=== PATIENT | female | born 1980 | race Two or more races ===

== ENCOUNTER 2018-04-02 10:01 | Outpatient (CLI) | payer OTHER ==
[~2018-04-02 10:01] MED LIST: IBUPROFEN800 MG PO; SEPTRA DS TABLE1 TAB PO
== END 2018-04-02 10:44 | disposition home or self-care (01) ==
LOC: NST 10:01
DX: Z34.83 Encounter for supervision of other normal pregnancy, third trimester (principal)

== ENCOUNTER 2018-05-14 10:45 | Inpatient (IN) | payer OTHER ==
[~2018-05-14] VITALS: Ht 162.6 cm; Wt 107.5 kg
[2018-05-22] MEDS ORDERED: PRENATAL FORMU1 EAC1 PO (08:31)
[2018-05-22] MEDS ORDERED: METFORMIN HCL750 MG PO (08:31)
[2018-05-22] MEDS ORDERED: IRON325 MG PO (08:32)
== END 2018-05-24 10:55 | disposition home or self-care (01) | DRG 775 ==
LOC: OB/GYN 05-22 07:01 → LDR 05-22 07:01 → OB/GYN 05-22 20:06 → LDR 06-09 10:45
PROC: 0KQM0ZZ Repair Perineum Muscle, Open Approach (ICD-10-PCS; principal; 2018-05-22)
PROC: 10E0XZZ Delivery of Products of Conception, External Approach (ICD-10-PCS; 2018-05-22)
PROC: 4A1HXCZ Monitoring of Products of Conception, Cardiac Rate, External Approach (ICD-10-PCS; 2018-05-22)
PROC: 4A033R1 Measurement of Arterial Saturation, Peripheral, Percutaneous Approach (ICD-10-PCS; 2018-05-22)
DX: O70.1 Second degree perineal laceration during delivery (principal); Z37.0 Single live birth; Z3A.37 37 weeks gestation of pregnancy

== ENCOUNTER 2018-05-21 09:30 | Outpatient (CLI) | payer OTHER ==
[2018-05-22] MEDS ORDERED: METFORMIN HCL750 MG PO (08:31)
[2018-05-22] MEDS ORDERED: PRENATAL FORMU1 EAC1 PO (08:31)
[2018-05-22] MEDS ORDERED: IRON325 MG PO (08:32)
== END 2018-05-21 10:40 | disposition home or self-care (01) ==
LOC: NST 09:30
DX: Z34.83 Encounter for supervision of other normal pregnancy, third trimester (principal)

== ENCOUNTER 2018-07-20 13:09 | Emergency (ER) | payer OTHER ==
[~2018-07-20] VITALS: Ht 162.6 cm; Wt 96.6 kg
[~2018-07-20 13:09] MED LIST changes: +IRON325 MG PO; +METFORMIN HCL750 MG PO; +PRENATAL FORMU1 EAC1 PO
== END 2018-07-20 17:53 | disposition home or self-care (01) ==
LOC: ER 13:09
DX: H10.89 Other conjunctivitis (principal)

== ENCOUNTER → 2024-08-07 07:21 | Outpatient (CLI) | payer OTHER ==
[2024-08-07 08:04] LABS: HEMATOCRIT 32.9 % (36.0-45.00); HEMOGLOBIN 10.5 g/dL (12.0-15.00); MEAN CELL VOLUME 77.4 fL (80.00-100.00); MEAN CORPUSCULAR HEMOGLOBIN 24.7 pg (27.00-32.0); MEAN CORPUSCULAR HGB CONC 31.9 g/dl (32.0-36.0); PLATELET COUNT 330 K/uL (150-450); RED BLOOD COUNT 4.25 M/uL (4.00-6.00)
[2024-08-07 08:08] LABS: RED CELL DISTRIBUTION WIDTH 24.5 % (11.5-14.5)
[2024-08-07 08:49] LABS: INR 0.99; PARTIAL THROMBOPLASTIN TIME 25.4 SECONDS (22.0-34.0); PROTHROMBIN TIME 10.8 SECONDS (9.0-11.5)
[2024-08-07 08:56] LABS: ALBUMIN 3.7 gm/dL (3.4-5.0); BILIRUBIN TOTAL 0.32 mg/dL (0.3-1.2); CALCIUM 9.2 mg/dL (8.5-10.1); CREATININE SERUM 0.62 mg/dL (0.55-1.02); GFR 105.56; GLOBULINA 3.7 G/DL (2.4-3.5); POTASSIUM 4.58 mEq/L (3.5-5.1); TOTAL PROTEIN 7.4 gm/dL (6.4-8.2)
== END | disposition home or self-care (01) ==
LOC: LAB 07:21
PROVIDERS: ATTEND Obstetrics & Gynecology
DX: N91.1 Secondary amenorrhea (principal); R07.9 Chest pain, unspecified

== ENCOUNTER 2024-08-07 07:45 | Outpatient (CLI) | payer OTHER | END 2024-08-07 07:57 | disposition home or self-care (01) | LOC: RAD 07:45 | PROVIDERS: ATTEND Obstetrics & Gynecology | DX: R05.9 Cough, unspecified (principal) ==

== ENCOUNTER 2024-09-09 10:00 | Inpatient (IN) | payer OTHER ==
[~2024-09-09] VITALS: Ht 121.9 cm; Wt 99.8 kg
[2024-09-09 11:18] VITALS: BP 145/80
[2024-09-09] MEDS ORDERED: IRON236 MG (11:21)
[2024-09-24 09:38] LABS: RH POSITIVE
[2024-09-24] MEDS ORDERED: CEFAZOLIN SODIUM 1,000 MG VIAL ONE (13:12)
[2024-09-24] MEDS ORDERED: POVIDONE-IODINE 118 ML BOTT TOP ONE (13:12)
[2024-09-24 13:54] LABS: HEMATOCRIT 36.2 % (36.0-45.00); HEMOGLOBIN 11.6 g/dL (12.0-15.00); MEAN CELL VOLUME 83.4 fL (80.00-100.00); MEAN CORPUSCULAR HEMOGLOBIN 26.8 pg (27.00-32.0); MEAN CORPUSCULAR HGB CONC 32.1 g/dl (32.0-36.0); PLATELET COUNT 232 K/uL (150-450); RED BLOOD COUNT 4.33 M/uL (4.00-6.00)
[2024-09-24 14:01] LABS: INR 1.02; PROTHROMBIN TIME 11.1 SECONDS (9.0-11.5)
[2024-09-24 14:07] LABS: RED CELL DISTRIBUTION WIDTH 17.4 % (11.5-14.5)
[2024-09-24 14:41] LABS: ALBUMIN 3.7 gm/dL (3.4-5.0); BILIRUBIN TOTAL 0.5 mg/dL (0.3-1.2); CALCIUM 8.9 mg/dL (8.5-10.1); CREATININE SERUM 0.52 mg/dL (0.55-1.02); GFR 128.7; GLOBULINA 3.6 G/DL (2.4-3.5); POTASSIUM 4.18 mEq/L (3.5-5.1); TOTAL PROTEIN 7.3 gm/dL (6.4-8.2)
[2024-09-24] MEDS ORDERED: MORPHINE SULFATE 4 MG/ML CARTRIDGE IV PRN (17:15)
[2024-09-24] MEDS ORDERED: RINGERS SOLUTION,LACTATED 1,000 ML IV SCH (17:15)
[2024-09-24] MEDS ORDERED: ONDANSETRON HCL 2 MG/ML VIAL IV ONE (17:15)
[2024-09-24] MEDS ORDERED: MORPHINE SULFATE 4 MG/ML VIAL IV ONE ×2 (18:50→19:50)
[2024-09-24] MEDS ORDERED: ONDANSETRON HCL 2 MG/ML VIAL ONE (18:54)
[2024-09-24 21:01] VITALS: BP 145/80
[2024-09-25] VITALS: BP 138/78
[2024-09-25 08:19] VITALS: BP 138/82
[2024-09-25] MEDS ORDERED: IBUprofen 400 MG TABLET PO SCH (09:00)
[2024-09-25 10:43] LABS: HEMOGLOBIN 11.4 g/dL (12.0-15.00); MEAN CELL VOLUME 82.6 fL (80.00-100.00); MEAN CORPUSCULAR HEMOGLOBIN 26.9 pg (27.00-32.0); MEAN CORPUSCULAR HGB CONC 32.6 g/dl (32.0-36.0); PLATELET COUNT 238 K/uL (150-450); RED BLOOD COUNT 4.23 M/uL (4.00-6.00); RED CELL DISTRIBUTION WIDTH 16.7 % (11.5-14.5)
[2024-09-25 15:41] VITALS: BP 128/88
[2024-09-26 00:45] VITALS: BP 123/83
[2024-09-26] MEDS ORDERED: OxyCODONE HCL 5 MG TABLET (ROXICODONE) PO PRN (06:00)
[2024-09-26 08:22] VITALS: BP 126/85
== END 2024-09-26 08:59 | disposition home or self-care (01) | DRG 743 ==
LOC: SURH 09-17 09:00 → O/R 09-24 07:18 → OB/GYN 09-24 17:46
PROVIDERS: ADMIT Obstetrics & Gynecology; ATTEND Obstetrics & Gynecology
PROC: 0UT70ZZ Resection of Bilateral Fallopian Tubes, Open Approach (ICD-10-PCS; 2024-09-24)
PROC: 0UT90ZL Resection of Uterus, Supracervical, Open Approach (ICD-10-PCS; principal; 2024-09-24 17:00)
DX: D25.1 Intramural leiomyoma of uterus (principal); D25.2 Subserosal leiomyoma of uterus; D25.0 Submucous leiomyoma of uterus; N80.03 Adenomyosis of the uterus

== ENCOUNTER 2024-09-24 06:59 | Outpatient (CLI) | payer OTHER ==
[~2024-09-24 06:59] MED LIST changes: +IRON236 MG
== END 2024-09-24 07:01 | disposition home or self-care (01) ==
LOC: LAB 06:59
DX: Z34.90 Encounter for supervision of normal pregnancy, unspecified, unspecified trimester (principal)